=== PATIENT | female | born 1990 | race African-American/Black ===

== ENCOUNTER 2017-01-05 20:14 | Emergency (ER) | payer OTHER ==
[2017-01-05 20:27] VITALS: BP 168/94
[2017-01-05] MEDS ORDERED: LIDOCAINE HCL 20 ML UDC MM ONE (20:39)
[2017-01-05] MEDS ORDERED: AMOXICILLIN TRIHYDRATE 250 MG CAPSULE PO ONE (20:39)
[2017-01-05] MEDS ORDERED: ACETAMINOPHEN 325 MG TABLET PO ONE (20:39)
[2017-01-05] MEDS ORDERED: ACETAMINOPHEN 325 MG TABLET ONE (20:43)
--- OUTSIDE RECORDS SUMMARY | 2017-01-05 20:43 | XMS REPORT | Continuity of Care Document ---
:1990 Author Organization [email or web address] [place] [address] Care Team Providers Name Role Phone Unavailable Primary Care Provider Unavailable Source Comments This disclosure is being made pursuant to the [employer] program and maynot contain all information available regarding this patient.[email or web address] Active Allergies and Adverse Reactions Not on File Current Medications Be aware that medications may not be up to date as of this document. Alwaysverify current medications with the patient. Not on file Active Problems Not on file Social History Tobacco Use Types Packs/Day Years Used Date Never Assessed Plan of Care Health Maintenance Due Date Last Done Comments Retired-Pertussis Vaccine Adult 2008 Retired-Tetanus Vaccine Adult 2008 Pap Smear 2010 Retired-INFLUENZA VACCINE 06/27/2015 Results from Last 3 Months Not on file
[2017-01-05] MEDS ORDERED: AMOXICILLIN TRIHYDRATE 250 MG CAPSULE ONE (20:44)
--- NOTE | 2017-01-05 20:47 | ERNOTE ---
ENT HPI Presenting Symptoms: dental pain Time Seen by Provider: 01/05/17 20:31 Source: patient Exam Limitations: no limitations - Immun/Allergies/Home Medications Immunizations: IMMUNIZATION HX Immunizations Up to Date Yes History of Influenza Vaccine No Hx Pneumococcal Vaccination No Allergies/Adverse Reactions: Allergies Allergy/AdvReac Type Severity Reaction Status Date / Time No Known Allergies Allergy Verified 01/05/17 20:27 Home Medications: HOME MEDICATIONS Amoxicillin Trihydrate [Amoxil] 500 mg PO TID #30 cap 01/05/17 [Last Taken Unknown] Ibuprofen [Motrin] 600 mg PO Q6H PRN #40 tab 01/05/17 [Last Taken Unknown] - History of Present Illness Narrative: Patient has had dental pain on and off for a while. Today it is worse again, mainly on the left side lower back, mild URI symptoms, no other symptoms Date (Duration): 01/05/17 ENT Location: Present: dental Prearrival Treatment: Present: over the counter meds - naproxen at 17:00 Associated Symptoms - ENT: Denies: fever, malaise, voice change Prior Treament: Reports: similar symptoms before. Denies: recently seen, currently on antibiotics Review of Systems - Review of Systems Constitutional: Absent: recent illness, fever ENT: Present: nose congestion. Absent: sore throat Respiratory: Absent: shortness of breath Cardiology: Absent: chest pain Gastrointestinal/Abdominal: Absent: nausea, vomiting, abdominal pain Genitourinary: Present: no symptoms reported Skin: Absent: rash - Patient's Past Medical History Patient History - Medical: No pertinent hx Patient History - Cardiac/Respiratory: No pertinent hx Patient History - Cancer: No Hx of Cancer Patient History - Surgical Procedures: Patient History - Other: None LMP (females 10-50): now - Family History Mother Family History - Medical: No pertinent hx Family History - Cardiac/Respiratory: No pertinent hx Grandmother-Paternal Family History - Medical: Diabetes Type 1 Grandfather-Maternal Family History - Medical: Diabetes Type 2 - Social History Living Situations: home Abuse History: No History of abuse Psych History: No pertinent hx Smoking Status: Current every day smoker Alcohol Use: none Drug Use: none - Immunizations Immunizations Up to Date: Yes Hx Pneumococcal Vaccination: No History of Influenza Vaccine: No Physical Exam - Physical Exam General Appearance: Present: wd/wn, alert, no apparent distress Eye Exam: Normal inspection: bilateral, PERRL: bilateral Ears, Nose, Throat: Present: normal ENT inspection, normal pharynx, other - few teeth with filling, left lower wisdom tooth decayed and tender with gum tenderness Neck: Present: lymphadenopathy (L) - submandibular Respiratory: Present: no respiratory distress, normal breath sounds, no accessory muscle use, lungs clear Cardiovascular/Chest: Present: regular rate, rhythm, no murmur Neurological Exam: Present: alert, oriented, normal mood/affect Skin Exam: Present: normal color, warm/dry ED Progress - Vital Signs Patient's Vital Signs:: I have reviewed the patient's vital signs. Vital Signs: Vital Signs 01/05/17 20:24 Temperature 37.8 C H Pulse Rate 73 Respiratory 16 Rate Blood Pressure 168/94 O2 Sat by Pulse 98 Oximetry - Progress/Reassessment Chief Complaint: Dental Problem Departure Clinical Impression: Pain, dental - Departure Disposition: Home self-care Condition: Good Instructions: Dental Abscess, [id number] Additional Instructions: call the dentist in the morning for follow up Prescriptions: Amoxicillin Trihydrate [Amoxil] 500 mg PO TID #30 cap Ibuprofen [Motrin] 600 mg PO Q6H PRN #40 tab PRN Reason: Pain
== END 2017-01-05 20:42 | disposition home or self-care (01) ==
LOC: ER 20:14
DX: K04.7 Periapical abscess without sinus (principal)